=== PATIENT | female | born 1955 | race Caucasian/White ===

== ENCOUNTER 2018-11-23 06:55 | Day surgery (SDC) | payer BC ==
[2018-11-23] MEDS ORDERED: NA BICARB 50 MEQ/50 ML VIAL (07:23)
[2018-11-23] MEDS ORDERED: EPINEPHrine 1 MG INJ (07:23)
[2018-11-23] MEDS ORDERED: TIMOLOL MALEATE/PF 0.5% OCCUDOSE (0.3 ML) (07:23)
[2018-11-23] MEDS ORDERED: LIDOCAINE 1% (MPF) 5 ML VIAL (07:23)
[2018-11-23] MEDS: MOXIFLOXACIN 0.5% 3 ML OPH OPER (08:08)
[2018-11-23] MEDS: LACTATED RINGER'S 1,000 ML IV (08:08)
[2018-11-23] MEDS: NEPAFENAC 0.1% 3 ML OPH OPER (08:08)
[2018-11-23] MEDS: PHENYLephrine 10% 5 ML OPH OPER (08:08)
[2018-11-23] MEDS: CYCLOPENTOLATE 2% 2 ML OPH OPER (08:08)
[2018-11-23] MEDS: LIDOCAINE 1% (MPF) 5 ML VIAL INJ (08:40)
[2018-11-23] MEDS ORDERED: FENTAnyl 50 MCG/ML VIAL ×2 (08:40→10:08)
[2018-11-23] MEDS ORDERED: MIDAZOLAM 1 MG/ML 2 ML INJ ×2 (08:40→09:54)
[2018-11-23] MEDS ORDERED: PROPOFOL 20 ML (09:10)
[2018-11-23] MEDS ORDERED: LIDOCAINE 2% (SDV) 5 ML INJ (09:10)
[2018-11-23] MEDS: CARBACHOL 0.01% 1.5 ML OPH INJ LEFT EYE ×2 (09:35→09:44)
[2018-11-23] MEDS ORDERED: CARBACHOL 0.01% 1.5 ML OPH INJ ×2 (09:41→10:29)
[2018-11-23] MEDS: TIMOLOL 0.5% 5 ML OPH LEFT EYE (09:46)
[2018-11-23] MEDS ORDERED: OXYCODONE/ACETAMINOPHEN (5/325) TAB PO ×2 (10:30)
[2018-11-23] MEDS ORDERED: HYDROmorphONE 1 MG/5 ML IV SYRINGE IV (10:30)
[2018-11-23] MEDS ORDERED: LABETALOL HCL 20MG INJ IV (10:30)
[2018-11-23] MEDS ORDERED: ONDANSETRON 4 MG INJ IV (10:30)
[2018-11-23] MEDS ORDERED: FENTAnyl 50 MCG/ML VIAL IV ×2 (10:30)
== END 2018-11-23 11:38 | disposition home or self-care (01) ==
LOC: SDS 06:55
DX: H25.12 Age-related nuclear cataract, left eye (principal); I10 Essential (primary) hypertension; E78.5 Hyperlipidemia, unspecified
CPT/HCPCS: 66984